=== PATIENT | female | born 1950 | race Caucasian/White ===

== ENCOUNTER 2019-01-06 11:52 | Inpatient (IN) | payer OTHER ==
[~2019-01-06] VITALS: Ht 149.9 cm; Wt 92.5 kg
[~2019-01-06 11:52] MED LIST: ALEVE220 M1 PO; CIPRO750 MG PO; PERCOCET 5/3251 TAB PO
--- NOTE | 2019-01-06 12:29 | NUR ---
SE RECIBE PTE AMBULANDO ALERTA Y ORIENTADA X3. FUE REFERIDA A KRISTI DE EMERGENCIAS POR DR. SVETLANA PORTER YA QUE PRESENTA TROMBOCITOPENIA (67.30)
[2019-01-06] MEDS ORDERED: SYNTHROID50 MCG PO (12:30)
[2019-01-06] MEDS ORDERED: SIMVASTATIN20 MG PO (12:31)
--- NOTE | 2019-01-06 14:34 | NUR ---
SE ORIENTA PTE SOBRE EL TRATAMIENTO ORDENADO POR LA DRA PATINO PTE ALERTA Y CONCIENTE POR 3 SE RELAIZAN MUESTRAS DE LABORTORIO Y SE ADMINISTRAN MEDICAMENTO ADEBAYO ORDENADO.
--- NOTE | 2019-01-07 07:10 | NUR ---
SE RECIBE PACIENTE DE TURNO ANTERIOR,EN CAMA CON LAS BARANDAS ELEVADAS. ACOMPANADA POR FAMILIAR.ESTA ALERTA Y ORIENTADA.ACOMPANADA POR FAMILIAR. AREA DE VENOPUNCION ESTA LIMPIA Y SECA,CECIL DE EDEMA. ES MANTENIDA CON CABEZERA A 45 GRADOS,BARANDAS ELEVADAS,TIMBRE ACCESIBLE Y EN OBSERVACION JESUS POR CAMBIOS EN CONDICION.
[2019-01-10] MEDS ORDERED: OSEL75CA PO (11:23)
[2019-01-10] MEDS ORDERED: LEVAQUIN750 MG PO (11:23)
[2019-01-10] MEDS ORDERED: MEDROLPACK PO (11:24)
[2019-01-10] MEDS ORDERED: ALBUTEROL2.5 MG/3 M IH (11:24)
== END 2019-01-10 13:16 | disposition home or self-care (01) | DRG 195 ==
LOC: ER 11:52 → SEC-K 01-07 09:07 → MEDI 01-07 09:07 → SURH 01-07 15:45 → SEC-K 01-07 16:10 → MEDI 01-08 02:40
PROVIDERS: ADMIT Internal Medicine
PROC: 3E0F7GC Introduction of Other Therapeutic Substance into Respiratory Tract, Via Natural or Artificial Opening (ICD-10-PCS; principal; 2019-01-06)
PROC: B246ZZZ Ultrasonography of Right and Left Heart (ICD-10-PCS; 2019-01-07)
DX: J10.1 Influenza due to other identified influenza virus with other respiratory manifestations (principal); J45.998 Other asthma; D69.49 Other primary thrombocytopenia; I10 Essential (primary) hypertension; E78.00 Pure hypercholesterolemia, unspecified; E03.8 Other specified hypothyroidism